=== PATIENT | female | born 1975 | race Caucasian/White ===

== ENCOUNTER 2016-08-18 00:27 | Emergency (ER) | payer MEDICAID ==
[2015-11-20 04:46] VITALS: BMI 31.1
[~2016-08-18 00:27] MED LIST: CELEXA40 MG PO; CLARITIN10 MG/TAB PO; FANAPT2 MG PO; NICODERM C1 PATCH .1 TRANSDERM; PRAVACHOL80 MG PO; PRILOSEC20 MG PO; SONATA10 MG PO; STELAZINE5 MG PO; ZETIA10 MG PO; ZOVIRAX400 MG PO
[2016-08-18 00:58] LABS: HEMOGLOBIN 13.2 g/dL (12-16); LYMPHOCYTES 46.7 % (15-50); MCH 33.9 pg (26.0-34.0); MCHC 34.7 g/dL (31.0-37.0); MCV 97.7 fL (80.0-100.0); MEAN PLATELET VOLUME 7.8 fL (7.4-10.4); NEUTROPHILS 45.6 % (40-80); PLATELET COUNT 297 10x3/uL (130-400); RBC 3.89 10x6/uL (4.00-5.40); WBC 6.9 10x3/uL (4.8-10.8)
[2016-08-18 01:10] LABS: ALBUMIN 3.1 g/dL (3.4-5.0); BILIRUBIN - TOTAL 0.3 mg/dL (0.2-1.3); CALCIUM 8.5 mg/dL (8.5-10.1); CARBON DIOXIDE 33.3 mmol/L (21.0-32.0); POTASSIUM - SERUM 3.3 mmol/L (3.5-5.1); PROTEIN - SERUM 6.2 g/dL (6.4-8.2)
[2016-08-18 02:54] LABS: APPEARANCE CLEAR (CLEAR); BILIRUBIN NEGATIVE (NEGATIVE); COLOR YELLOW (YELLOW); GLUCOSE NEGATIVE (NEGATIVE); KETONE NEGATIVE (NEGATIVE); LEUKOCYTE ESTERASE NEGATIVE (NEGATIVE); NITRITE NEGATIVE (NEGATIVE); PROTEIN NEGATIVE (NEGATIVE); SPECIFIC GRAVITY 1.005 (1.005-1.020); UROBILINOGEN NORMAL (NORMAL)
== END 2016-08-18 03:55 | disposition home or self-care (01) ==
LOC: D.ER 00:27
PROVIDERS: Emergency Medicine
DX: K29.00 Acute gastritis without bleeding (principal); F17.200 Nicotine dependence, unspecified, uncomplicated

== ENCOUNTER 2016-08-30 21:53 | Emergency (ER) | payer MEDICAID ==
[2015-11-20 04:46] VITALS: BMI 31.1
[2016-08-30 22:48] LABS: BASOPHILS 0.3 % (0.0-2.0); EOSINOPHILS 2.3 % (0-7); HEMATOCRIT 38.3 % (36.0-48.0); IMMATURE GRANULOCYTES 0.1 % (0-5); LYMPHOCYTES 37.8 % (15-50); MCH 33.3 pg (26.0-34.0); MCHC 33.9 g/dL (31.0-37.0); MCV 98.2 fL (80.0-100.0); MEAN PLATELET VOLUME 8.5 fL (7.4-10.4); MONOCYTES 7.1 % (2-11); NEUTROPHILS 52.4 % (40-80); PLATELET COUNT 251 10x3/uL (130-400); RDW 12.7 % (11.5-14.5)
[2016-08-30 23:03] LABS: ALBUMIN 3.6 g/dL (3.4-5.0); ALKALINE PHOSPHATASE 86 U/L (46-116); ALT (SGPT) 54 U/L (10-68); BILIRUBIN - TOTAL 0.33 mg/dL (0.2-1.3); CALC OSMOLALITY 277 mosm/kg (275-300); CALCIUM 9.5 mg/dL (8.5-10.1); CARBON DIOXIDE 26.7 mmol/L (21.0-32.0); CHLORIDE - SERUM 105 mmol/L (98-107); CREATININE - SERUM 0.9 mg/dL (0.6-1.3); GLUCOSE 90 mg/dL (74-106); POTASSIUM - SERUM 3.7 mmol/L (3.5-5.1); PROTEIN - SERUM 6.5 g/dL (6.4-8.2); SODIUM 140 mmol/L (136-145); UREA NITROGEN 10 mg/dL (7-18); eGFR NON AFRICAN AMERICAN 74 mL/min (90-120)
[2016-08-30 23:14] LABS: AMYLASE - SERUM 30 U/L (25-115); CKMB 0.6 U/L (0.0-3.6); CREATINE KINASE 96 UL (21-215); LIPASE 174 U/L (73-393)
[2016-08-30 23:16] LABS: TROPONIN-I < 0.017 ng/mL (0.000-0.060)
== END 2016-08-31 01:40 | disposition home or self-care (01) ==
LOC: D.ER 21:53
PROVIDERS: Surgery
DX: S30.1XXA Contusion of abdominal wall, initial encounter (principal); W10.9XXA Fall (on) (from) unspecified stairs and steps, initial encounter; Y93.89 Activity, other specified; Y92.89 Other specified places as the place of occurrence of the external cause

== ENCOUNTER → 2016-11-06 13:40 | Outpatient (CLI) | payer MEDICAID ==
[2015-11-20 04:46] VITALS: BMI 31.1
== END | disposition home or self-care (01) ==
LOC: D.LAB 13:40
DX: R19.7 Diarrhea, unspecified (principal); R10.9 Unspecified abdominal pain; R19.4 Change in bowel habit

== ENCOUNTER 2016-11-12 07:14 | Emergency (ER) | payer MEDICAID ==
[2015-11-20 04:46] VITALS: BMI 31.1
[2016-11-12 07:58] LABS: BASOPHILS 0.7 % (0-2); EOSINOPHILS 2.2 % (0-7); HEMATOCRIT 40.5 % (36.0-48.0); HEMOGLOBIN 13.7 g/dL (12-16); LYMPHOCYTES 46.6 % (15-50); MCH 33.7 pg (26.0-34.0); MCHC 33.8 g/dL (31.0-37.0); MCV 99.5 fL (80.0-100.0); MEAN PLATELET VOLUME 8.3 fL (7.4-10.4); MONOCYTES 9.6 % (2-11); NEUTROPHILS 40.9 % (40-80); PLATELET COUNT 212 10x3/uL (130-400); RBC 4.07 10x6/uL (4.00-5.40); WBC 4.1 10x3/uL (4.8-10.8)
[2016-11-12 08:14] LABS: ALBUMIN 3.4 g/dL (3.4-5.0); ANION GAP 9.3 mmol/L (8-16); BILIRUBIN - TOTAL 0.55 mg/dL (0.2-1.3); CARBON DIOXIDE 29.4 mmol/L (21.0-32.0); CREATININE - SERUM 1.1 mg/dL (0.6-1.3); POTASSIUM - SERUM 3.7 mmol/L (3.5-5.1); PROTEIN - SERUM 6.7 g/dL (6.4-8.2)
[2016-11-12 09:05] LABS: APPEARANCE HAZY (CLEAR); BILIRUBIN NEGATIVE (NEGATIVE); COLOR YELLOW (YELLOW); GLUCOSE NEGATIVE (NEGATIVE); KETONE NEGATIVE (NEGATIVE); LEUKOCYTE ESTERASE TRACE (NEGATIVE); NITRITE NEGATIVE (NEGATIVE); PROTEIN NEGATIVE (NEGATIVE); UROBILINOGEN NORMAL (NORMAL)
[2016-11-12 09:06] LABS: AMORPHOUS SEDIMENT <1+ /lpf (NONE SEEN); BACTERIA MODERATE /hpf (NONE SEEN); EPITHELIAL CELLS 0-5 /hpf (0-5); MUCUS >1+ /lpf (NONE SEEN); RED CELLS - URINE 0-5 /hpf (0-5); WHITE CELLS - URINE 0-5 /hpf (0-5)
== END 2016-11-12 09:13 | disposition home or self-care (01) ==
LOC: D.ER 07:14
PROVIDERS: Emergency Medicine
DX: K29.80 Duodenitis without bleeding (principal); K22.10 Ulcer of esophagus without bleeding; F17.200 Nicotine dependence, unspecified, uncomplicated

== ENCOUNTER 2016-11-13 15:25 | Emergency (ER) | payer MEDICAID ==
[2015-11-20 04:46] VITALS: BMI 31.1
== END 2016-11-13 16:35 | disposition home or self-care (01) ==
LOC: D.ER 15:25
DX: J06.9 Acute upper respiratory infection, unspecified (principal); J20.9 Acute bronchitis, unspecified; F17.200 Nicotine dependence, unspecified, uncomplicated

== ENCOUNTER → 2016-11-18 09:05 | Outpatient (CLI) | payer MEDICAID ==
[2015-11-20 04:46] VITALS: BMI 31.1
[2016-11-24 03:06] LABS: OVA + PARASITE EXAM Final report (())
== END | disposition home or self-care (01) ==
LOC: D.LABREF 09:05
PROVIDERS: Internal Medicine Gastroenterology
DX: R19.7 Diarrhea, unspecified (principal)

== ENCOUNTER → 2016-11-20 08:13 | Outpatient (CLI) | payer MEDICAID ==
[2015-11-20 04:46] VITALS: BMI 31.1
[2016-11-20 09:05] LABS: BILIRUBIN - DIRECT 0.05 mg/dL (0.00-0.30); BILIRUBIN - INDIRECT 0.08 mg/dL (0.00-1.00); BILIRUBIN - TOTAL 0.13 mg/dL (0.2-1.3); PROTEIN - SERUM 7.1 g/dL (6.4-8.2)
== END | disposition home or self-care (01) ==
LOC: D.LAB 08:13 → D.US 09:00 → D.NM 09:30
PROVIDERS: Internal Medicine Gastroenterology
DX: R10.9 Unspecified abdominal pain (principal); R11.2 Nausea with vomiting, unspecified; R19.7 Diarrhea, unspecified

== ENCOUNTER 2016-12-15 04:05 | Emergency (ER) | payer MEDICAID ==
[2015-11-20 04:46] VITALS: BMI 31.1
[2016-12-15 05:16] LABS: BASOPHILS 0.3 % (0-2); EOSINOPHILS 1.3 % (0-7); HEMATOCRIT 40.6 % (36.0-48.0); HEMOGLOBIN 14.2 g/dL (12-16); IMMATURE GRANULOCYTES 0.2 % (0-5); LYMPHOCYTES 50.2 % (15-50); MCH 33.5 pg (26.0-34.0); MCV 95.8 fL (80.0-100.0); MEAN PLATELET VOLUME 8.7 fL (7.4-10.4); MONOCYTES 6.6 % (2-11); NEUTROPHILS 41.4 % (40-80); RBC 4.24 10x6/uL (4.00-5.40); RDW 11.7 % (11.5-14.5); WBC 6.3 10x3/uL (4.8-10.8)
[2016-12-15 05:17] LABS: APPEARANCE HAZY (CLEAR); BILIRUBIN NEGATIVE (NEGATIVE); COLOR YELLOW (YELLOW); GLUCOSE NEGATIVE (NEGATIVE); HCG URINE NEGATIVE (NEGATIVE); KETONE NEGATIVE (NEGATIVE); LEUKOCYTE ESTERASE TRACE (NEGATIVE); NITRITE NEGATIVE (NEGATIVE); PROTEIN NEGATIVE (NEGATIVE); SPECIFIC GRAVITY 1.005 (1.005-1.020); UROBILINOGEN NORMAL (NORMAL)
[2016-12-15 05:17] LABS: PLATELET COUNT 310 10x3/uL (130-400)
[2016-12-15 05:26] LABS: ALBUMIN 3.9 g/dL (3.4-5.0); ANION GAP 16.8 mmol/L (8-16); BILIRUBIN - TOTAL 0.46 mg/dL (0.2-1.3); CALCIUM 9.3 mg/dL (8.5-10.1); CARBON DIOXIDE 22.5 mmol/L (21.0-32.0); POTASSIUM - SERUM 3.3 mmol/L (3.5-5.1); PROTEIN - SERUM 7.1 g/dL (6.4-8.2)
[2016-12-15 05:26] LABS: BACTERIA FEW /hpf (NONE SEEN); EPITHELIAL CELLS 0-5 /hpf (0-5); RED CELLS - URINE OCC /hpf (0-5); UDS - AMPHET POSITIVE QUAL (NEGATIVE); UDS - BARB NEGATIVE QUAL (NEGATIVE); UDS - BENZO POSITIVE QUAL (NEGATIVE); UDS - COCAINE NEGATIVE QUAL (NEGATIVE); UDS - METH NEGATIVE QUAL (NEGATIVE); UDS - OPIATE NEGATIVE QUAL (NEGATIVE); UDS - PCP NEGATIVE QUAL (NEGATIVE); UDS - THC NEGATIVE QUAL (NEGATIVE); WHITE CELLS - URINE 0-5 /hpf (0-5)
[2016-12-16] MEDS ORDERED: XANAX1 MG PO (09:37)
[2016-12-16] MEDS ORDERED: THORAZINE50 MG PO (09:38)
[2016-12-16] MEDS ORDERED: CYCLOBENZAPRINE10 MG PO (09:38)
[2016-12-16] MEDS ORDERED: MULTIPLE VITAMI1 TA1 PO (09:39)
[2016-12-16] MEDS ORDERED: FISH OIL 1,0001 CA1 PO (09:40)
[2016-12-16] MEDS ORDERED: PROBIOTIC1 EAC1 PO (09:40)
[2016-12-16] MEDS ORDERED: POTASSIUM99 M1 PO (09:40)
== END 2016-12-15 07:05 | disposition home or self-care (01) ==
LOC: D.ER 04:05
PROVIDERS: Family Medicine
DX: R53.1 Weakness (principal); R10.9 Unspecified abdominal pain; R53.83 Other fatigue; R51 Headache

== ENCOUNTER 2016-12-17 06:40 | Day surgery (SDC) | payer MEDICAID ==
[~2016-12-17] VITALS: Ht 165.1 cm; Wt 80.3 kg
[~2016-12-17 06:40] MED LIST changes: +CYCLOBENZAPRINE10 MG PO; +FISH OIL 1,0001 CA1 PO; +MULTIPLE VITAMI1 TA1 PO; +POTASSIUM99 M1 PO; +PROBIOTIC1 EAC1 PO; +THORAZINE50 MG PO; +XANAX1 MG PO
[2016-12-17 07:26] VITALS: BP 88/48; Ht 165.1 cm; Wt 80.3 kg
[2016-12-17] MEDS ORDERED: HYDROCODON-ACE1 EAC7 PO (10:19)
--- NOTE | 2016-12-17 14:49 | NUR ---
1130--PT COMPLAINS OF PAIN, RATES PAIN 03/22. NORCO 5/325MG X2 GIVEN PO, PT DENIES FURTHER NEEDS AT THIS TIME. WILL CONTINUE TO MONITOR. MIKA CARDENAS
--- NOTE | 2016-12-17 14:51 | NUR ---
1245--PT VOIDS WITHOUT DIFFICULTY, IV DC'D. MIKA RN [id number]--DISCHARGE INSTRUCTIONS GIVEN WITH PRESCRIPTION, PT VERBALIZES UNDERSTANDING. PT OFF UNIT VIA WC. MIKA CARDENAS
--- NOTE | 2016-12-17 19:25 | OP ---
PATIENT NAME: OBED BUENO MEDICAL RECORD: [id number] :79 [facility] ADMISSION DATE: SURGEON: LYNN MARQUEZ MD DATE OF OPERATION: 12/17/2016 SURGEON: Lynn Marquez MD. PREOPERATIVE DIAGNOSES: 1. Calculus of gallbladder without cholecystitis. 2. Gastroesophageal reflux disease with esophagitis. 3. Nicotine dependence. POSTOPERATIVE DIAGNOSES: 1. Calculus of gallbladder without cholecystitis. 2. Gastroesophageal reflux disease with esophagitis. 3. Nicotine dependence. PROCEDURE PERFORMED: Laparoscopic cholecystectomy. ANESTHESIA: General. COMPLICATIONS: None. SPECIMENS: Gallbladder. Case is contaminated. ESTIMATED BLOOD LOSS: 40 cc. OPERATIVE COURSE: After consent was obtained, the patient was taken to the operating room and placed in supine position on the operating table. Next, general anesthesia was given via endotracheal intubation after a timeout was taken to confirm the correct patient and procedure. The abdomen was then prepped and draped in typical sterile fashion. Local anesthetic was injected just above the umbilicus. A stab incision was made with 11-blade scalpel. Using a 5-mm bladeless optical trocar, the abdomen was entered under direct laparoscopic vision. Adequate pneumoperitoneum was achieved. The abdominal cavity was inspected. No evidence of bowel injury. No evidence of bleeding. The patient was then placed in the steep reverse Trendelenburg position. At this time, all remaining trocars were placed after the administration of local anesthetic, two 5-mm trocars in the right upper quadrant and 11-mm trocar in the subxiphoid position. The fundus of the gallbladder was grasped and retracted cephalad. The infundibulum was grasped and retracted laterally. The peritoneum was incised using electrocautery. Blunt dissection was performed until the critical view was obtained, the cystic duct lateral, cystic artery medial, liver in the posterior window. Two clips were placed in the proximal cystic artery. Three clips were placed in the proximal cystic duct, 1 clip distal. The duct and artery were then transected with laparoscopic Metzenbaum scissors. Remaining portion of the gallbladder was then dissected off the liver bed using electrocautery. Once complete, it was grasped with the tenaculum and removed through the 11-mm trocar and sent for permanent pathology. Next, the operative site was copiously irrigated and suctioned. Careful attention was paid to hemostasis, which was obtained in the liver bed using electrocautery. There is [address] in the cystic duct, [address] in the cystic artery. Next, the abdominal cavity was inspected. The abdominal cavity was irrigated OPERATIVE REPORT [id number] OBED BUENO and suctioned. There was no evidence of bowel injury. No evidence of bleeding, no evidence of bile leak. At this time, all remaining instruments were removed. The abdomen was desufflated. Trocars removed. The skin was closed with 4-0 Monocryl, Mastisol and Steri-Strips. At the end of the case, all needle and instrument counts were correct. No complications ____ occurred. The patient was extubated and transferred to PACU in stable condition. TRANSINT:[id number] Voice Confirmation ID: [id number] DOCUMENT ID: [id number] LYNN MARQUEZ MD at 1925 CC: [id number] DICTATION DATE: 12/17/16 1018 [facility] REGULATOR: 12/17/16 1252 [facility] 12/17/16 [facility] [address] [place] [address]
== END 2016-12-17 13:05 | disposition home or self-care (01) ==
LOC: D.OPS 06:40 → D.PAN 08:40 → D.OPS 08:45 → D.PAN 09:00 → D.OPS 13:05
DX: K80.20 Calculus of gallbladder without cholecystitis without obstruction (principal); K21.0 Gastro-esophageal reflux disease with esophagitis; F17.200 Nicotine dependence, unspecified, uncomplicated

== ENCOUNTER 2016-12-20 05:24 | Emergency (ER) | payer MEDICAID ==
[2016-12-17 07:26] VITALS: BMI 29.5
[~2016-12-20 05:24] MED LIST changes: +HYDROCODON-ACE1 EAC7 PO
[2016-12-20 07:46] LABS: BASOPHILS 0.1 % (0-2); EOSINOPHILS 0.7 % (0-7); HEMATOCRIT 38.6 % (36.0-48.0); HEMOGLOBIN 13.1 g/dL (12-16); IMMATURE GRANULOCYTES 0.4 % (0-5); LYMPHOCYTES 11.2 % (15-50); MCH 33.2 pg (26.0-34.0); MCHC 33.9 g/dL (31.0-37.0); MCV 97.7 fL (80.0-100.0); MEAN PLATELET VOLUME 8.8 fL (7.4-10.4); NEUTROPHILS 79.6 % (40-80); RBC 3.95 10x6/uL (4.00-5.40); RDW 11.9 % (11.5-14.5); WBC 8.5 10x3/uL (4.8-10.8)
[2016-12-20 07:48] LABS: PLATELET COUNT 244 10x3/uL (130-400)
[2016-12-20 08:06] LABS: ALBUMIN 3.8 g/dL (3.4-5.0); ALKALINE PHOSPHATASE 429 U/L (46-116); CALC OSMOLALITY 276 mosm/kg (275-300); CALCIUM 8.9 mg/dL (8.5-10.1); CHLORIDE - SERUM 100 mmol/L (98-107); CREATININE - SERUM 0.7 mg/dL (0.6-1.3); GLUCOSE 128 mg/dL (74-106); LIPASE 115 U/L (73-393); POTASSIUM - SERUM 3.8 mmol/L (3.5-5.1); PROTEIN - SERUM 6.8 g/dL (6.4-8.2); SODIUM 137 mmol/L (136-145); UREA NITROGEN 14 mg/dL (7-18); eGFR NON AFRICAN AMERICAN > 90 mL/min (90-120)
[2016-12-20 08:07] LABS: ALT (SGPT) 1421 U/L (10-68)
== END 2016-12-20 10:19 | disposition home or self-care (01) ==
LOC: D.ER 05:24
PROVIDERS: Emergency Medicine
DX: G89.18 Other acute postprocedural pain (principal); S39.011A Strain of muscle, fascia and tendon of abdomen, initial encounter; X58.XXXA Exposure to other specified factors, initial encounter; Y93.E9 Activity, other interior property and clothing maintenance

== ENCOUNTER → 2017-01-01 11:26 | Outpatient (CLI) | payer MEDICAID ==
[2016-12-17 07:26] VITALS: BMI 29.5
[2017-01-01 11:58] LABS: BASOPHILS 0.2 % (0-2); EOSINOPHILS 6.2 % (0-7); HEMOGLOBIN 13.6 g/dL (12-16); IMMATURE GRANULOCYTES 0.9 % (0-5); LYMPHOCYTES 19.9 % (15-50); MCH 33.3 pg (26.0-34.0); MEAN PLATELET VOLUME 8.3 fL (7.4-10.4); MONOCYTES 4.2 % (2-11); NEUTROPHILS 68.6 % (40-80); RBC 4.08 10x6/uL (4.00-5.40); RDW 11.8 % (11.5-14.5); WBC 14.9 10x3/uL (4.8-10.8)
[2017-01-01 12:01] LABS: PLATELET COUNT 516 10x3/uL (130-400)
[2017-01-01 12:19] LABS: ALBUMIN 2.9 g/dL (3.4-5.0); BILIRUBIN - DIRECT 0.17 mg/dL (0.00-0.30); BILIRUBIN - INDIRECT 0.29 mg/dL (0.00-1.00); BILIRUBIN - TOTAL 0.46 mg/dL (0.2-1.3); PROTEIN - SERUM 7.9 g/dL (6.4-8.2)
[2017-01-02 10:19] LABS: HEPATITIS C ANTIBODY <0.1 (0.0-0.9)
== END | disposition home or self-care (01) ==
LOC: D.LAB 12-30 15:00
PROVIDERS: Surgery
DX: K80.20 Calculus of gallbladder without cholecystitis without obstruction (principal); R74.0 Nonspecific elevation of levels of transaminase and lactic acid dehydrogenase [LDH]

== ENCOUNTER 2017-04-13 06:17 | Emergency (ER) | payer MEDICAID ==
[2016-12-17 07:26] VITALS: BMI 29.5
[2017-04-13 06:45] LABS: BASOPHILS 0.3 % (0-2); EOSINOPHILS 1.8 % (0-7); HEMATOCRIT 37.3 % (36.0-48.0); HEMOGLOBIN 12.9 g/dL (12-16); IMMATURE GRANULOCYTES 0.2 % (0-5); LYMPHOCYTES 41.4 % (15-50); MCH 32.6 pg (26.0-34.0); MCHC 34.6 g/dL (31.0-37.0); MCV 94.2 fL (80.0-100.0); MEAN PLATELET VOLUME 8.4 fL (7.4-10.4); MONOCYTES 7.1 % (2-11); NEUTROPHILS 49.2 % (40-80); RBC 3.96 10x6/uL (4.00-5.40); RDW 12.6 % (11.5-14.5); WBC 6.1 10x3/uL (4.8-10.8)
[2017-04-13 06:48] LABS: PLATELET COUNT 232 10x3/uL (130-400)
[2017-04-13 07:12] LABS: ALBUMIN 3.6 g/dL (3.4-5.0); ALKALINE PHOSPHATASE 95 U/L (46-116); ALT (SGPT) 53 U/L (10-68); BILIRUBIN - TOTAL 0.46 mg/dL (0.2-1.3); CALC OSMOLALITY 276 mosm/kg (275-300); CALCIUM 9.3 mg/dL (8.5-10.1); CARBON DIOXIDE 26.6 mmol/L (21.0-32.0); CHLORIDE - SERUM 105 mmol/L (98-107); CREATININE - SERUM 0.8 mg/dL (0.6-1.3); GLUCOSE 99 mg/dL (74-106); POTASSIUM - SERUM 3.2 mmol/L (3.5-5.1); PROTEIN - SERUM 6.6 g/dL (6.4-8.2); SODIUM 140 mmol/L (136-145); UREA NITROGEN 6 mg/dL (7-18); eGFR NON AFRICAN AMERICAN 85 mL/min (90-120)
[2017-04-13 07:23] LABS: CHOL - HDL RATIO 2.9 ratio (2.3-4.1); CHOLESTEROL, TOTAL 167 mg/dL (0-200); CREATINE KINASE 88 UL (21-215); HDL CHOLESTEROL 58 mg/dL (32-96); LDL CHOLESTEROL 91 mg/dL (0-100); LDL-HDL RATIO 1.6 ratio (1.5-3.5); TRIGLYCERIDE 92 mg/dL (30-200)
[2017-04-13 07:31] LABS: TROPONIN-I < 0.017 ng/mL (0.000-0.060)
== END 2017-04-13 08:09 | disposition home or self-care (01) ==
LOC: D.ER 06:17
PROVIDERS: Family Medicine
DX: R07.9 Chest pain, unspecified (principal); F15.10 Other stimulant abuse, uncomplicated; E87.6 Hypokalemia

== ENCOUNTER 2018-01-16 21:08 | Emergency (ER) | payer MEDICAID ==
[~2018-01-16] VITALS: Ht 165.1 cm; Wt 79.5 kg
[2018-01-16 21:14] VITALS: Ht 165.1 cm; Wt 79.5 kg
[2018-01-16] MEDS ORDERED: SEROQUEL200 MG PO (21:18)
[2018-01-16] MEDS ORDERED: NEURONTIN 300300 MG PO (21:19)
[2018-01-16] MEDS ORDERED: LIPITOR10 MG PO (21:20)
[2018-01-16 22:54] LABS: BASOPHILS 0.4 % (0-2); EOSINOPHILS 1.6 % (0-7); HEMATOCRIT 42.8 % (36.0-48.0); HEMOGLOBIN 14.8 g/dL (12-16); IMMATURE GRANULOCYTES 0.1 % (0-5); LYMPHOCYTES 43.2 % (15-50); MCH 33.5 pg (26.0-34.0); MCHC 34.6 g/dL (31.0-37.0); MCV 96.8 fL (80.0-100.0); MEAN PLATELET VOLUME 8.5 fL (7.4-10.4); MONOCYTES 6.4 % (2-11); NEUTROPHILS 48.3 % (40-80); RBC 4.42 10x6/uL (4.00-5.40); RDW 11.9 % (11.5-14.5); WBC 6.7 10x3/uL (4.8-10.8)
[2018-01-16 23:00] LABS: PLATELET COUNT 283 10x3/uL (130-400)
[2018-01-16 23:01] LABS: APPEARANCE HAZY (CLEAR); BILIRUBIN NEGATIVE (NEGATIVE); COLOR YELLOW (YELLOW); GLUCOSE NEGATIVE (NEGATIVE); KETONE NEGATIVE (NEGATIVE); NITRITE NEGATIVE (NEGATIVE); PROTEIN NEGATIVE (NEGATIVE); UROBILINOGEN NORMAL (NORMAL)
[2018-01-16 23:09] LABS: ALBUMIN 4.1 g/dL (3.4-5.0); ALKALINE PHOSPHATASE 146 U/L (46-116); ALT (SGPT) 59 U/L (10-68); CALC OSMOLALITY 277 mosm/kg (275-300); CALCIUM 9.7 mg/dL (8.5-10.1); CARBON DIOXIDE 27.3 mmol/L (21.0-32.0); CHLORIDE - SERUM 104 mmol/L (98-107); CREATININE - SERUM 0.9 mg/dL (0.6-1.3); GLUCOSE 99 mg/dL (74-106); SODIUM 140 mmol/L (136-145); UDS - AMPHET POSITIVE QUAL (NEGATIVE); UDS - BARB NEGATIVE QUAL (NEGATIVE); UDS - BENZO NEGATIVE QUAL (NEGATIVE); UDS - COCAINE NEGATIVE QUAL (NEGATIVE); UDS - OPIATE NEGATIVE QUAL (NEGATIVE); UDS - PCP NEGATIVE QUAL (NEGATIVE); UDS - THC NEGATIVE QUAL (NEGATIVE); UREA NITROGEN 10 mg/dL (7-18); eGFR NON AFRICAN AMERICAN 73 mL/min (90-120)
[2018-01-16 23:15] LABS: TROPONIN-I < 0.017 ng/mL (0.000-0.060)
[2018-01-17 00:55] VITALS: BP 110/801
== END 2018-01-17 00:58 | disposition home or self-care (01) ==
LOC: D.ER 21:08
PROVIDERS: Family Medicine
DX: F15.10 Other stimulant abuse, uncomplicated (principal); R07.9 Chest pain, unspecified; R06.02 Shortness of breath; F17.200 Nicotine dependence, unspecified, uncomplicated

== ENCOUNTER 2018-04-30 13:28 | Emergency (ER) | payer MEDICAID ==
[~2018-04-30] VITALS: Ht 165.1 cm; Wt 78.2 kg
[~2018-04-30 13:28] MED LIST changes: +LIPITOR10 MG PO; +NEURONTIN 300300 MG PO; +SEROQUEL200 MG PO
[2018-04-30 13:37] VITALS: Ht 165.1 cm; Wt 78.2 kg
[2018-04-30] MEDS ORDERED: VISTARIL25 MG PO (15:06)
[2018-04-30 15:28] VITALS: BP 111/67
== END 2018-04-30 15:28 | disposition home or self-care (01) ==
LOC: D.ER 13:28
DX: L50.9 Urticaria, unspecified (principal); R21 Rash and other nonspecific skin eruption; J42 Unspecified chronic bronchitis; R05 Cough; F17.200 Nicotine dependence, unspecified, uncomplicated

== ENCOUNTER 2018-05-13 06:57 | Emergency (ER) | payer MEDICAID ==
[~2018-05-13] VITALS: Ht 165.1 cm; Wt 78.2 kg
[~2018-05-13 06:57] MED LIST changes: +VISTARIL25 MG PO
[2018-05-13 07:09] VITALS: BP 134/85; Ht 165.1 cm; Wt 78.2 kg
[2018-05-13] MEDS ORDERED: ERYTHROMYCIN OPT1 GM LEFT EYE (08:01)
[2018-05-13] MEDS ORDERED: ACETAMINOPHEN500 M1 PO (08:02)
[2018-05-13] MEDS ORDERED: IBUPROFEN800 MG PO (08:02)
== END 2018-05-13 08:36 | disposition home or self-care (01) ==
LOC: D.ER 06:57
DX: S05.02XA Injury of conjunctiva and corneal abrasion without foreign body, left eye, initial encounter (principal); X58.XXXA Exposure to other specified factors, initial encounter; Y93.89 Activity, other specified; Y92.019 Unspecified place in single-family (private) house as the place of occurrence of the external cause; F17.200 Nicotine dependence, unspecified, uncomplicated

== ENCOUNTER 2019-02-07 15:48 | Emergency (ER) | payer MEDICAID ==
[~2019-02-07] VITALS: Ht 165.1 cm; Wt 73.2 kg
[~2019-02-07 15:48] MED LIST changes: +ACETAMINOPHEN500 M1 PO; +ERYTHROMYCIN OPT1 GM LEFT EYE; +IBUPROFEN800 MG PO
[2019-02-07 15:55] VITALS: BP 111/67; Ht 165.1 cm; Wt 73.2 kg
== END 2019-02-07 17:47 | disposition home or self-care (01) ==
LOC: D.ER 15:48
DX: S80.01XA Contusion of right knee, initial encounter (principal); S90.01XA Contusion of right ankle, initial encounter; W22.8XXA Striking against or struck by other objects, initial encounter; Y93.89 Activity, other specified; Y92.89 Other specified places as the place of occurrence of the external cause

== ENCOUNTER 2019-12-08 01:35 | Emergency (ER) | payer MEDICAID ==
[~2019-12-08] VITALS: Ht 165.1 cm; Wt 90.9 kg
[2019-12-08 01:36] VITALS: Ht 165.1 cm; Wt 90.9 kg
--- NOTE | 2019-12-08 01:45 | NUR ---
DR. BETANCOURT NOTIFIED AND REVIEWED PT'S BEHAVIOR AND ASSESSMENT RESULTS. PT IS A LOW RISK PER DR. BETANCOURT. DR. BETANCOURT STATED TO GIVE RESOURCES TO PT AT TIME OF DISCHARGE. NO FURTHER ORDERS AT THIS TIME. RESOURCES REVIEWED WITH THE PT AND SHE VERBALIZED UNDERSTANDING.
[2019-12-08 05:48] VITALS: BP 121/76
== END 2019-12-08 05:48 | disposition home or self-care (01) ==
LOC: D.ER 01:35
DX: M25.561 Pain in right knee (principal); K76.0 Fatty (change of) liver, not elsewhere classified; E78.5 Hyperlipidemia, unspecified